=== PATIENT | female | born 1985 | race Caucasian/White ===

== ENCOUNTER → 2020-08-17 | Emergency (ER) | payer BC ==
[~2020-08-17] VITALS: Ht 170.2 cm; Wt 86.4 kg
[~2020-08-17] MED LIST: TYLENOL W/CODEI1 TAB PO; VOLTAREN75 MG PO; ZOLOFT100 MG PO
[2020-08-17 18:09] VITALS: Ht 170.2 cm; Wt 86.4 kg
[2020-08-17 20:01] VITALS: BP 140/85
== END | disposition home or self-care (01) ==
LOC: D.ER 18:05
DX: S92.901A Unspecified fracture of right foot, initial encounter for closed fracture (principal); W19.XXXA Unspecified fall, initial encounter; Y93.9 Activity, unspecified; Y92.9 Unspecified place or not applicable